=== PATIENT | male | born 1955 | race Caucasian/White ===

== ENCOUNTER → 2016-10-02 | Outpatient (CLI) | payer BC ==
[~2016-10-02] MED LIST: ASPI-407 PO; CHOL20009 PO; FLUT1SPR5; LORA-154 PO; METO25TA3 PO; NOR10T PO; ROSU20TA14 PO; TAM04C PO; VALS40TA2 PO
== END | disposition home or self-care (01) ==
LOC: Rad HDHVI 13:40
PROVIDERS: ATTEND Internal Medicine Cardiovascular Disease
DX: E78.5 Hyperlipidemia, unspecified (principal); R42 Dizziness and giddiness
CPT/HCPCS: 93306

== ENCOUNTER → 2016-11-11 | Outpatient (CLI) | payer BC ==
[2016-11-11 08:45] VITALS: BP 149/86
[2016-11-11 09:15] VITALS: BP 150/84
[2016-11-11 12:36] LABS: Basophils # (auto) 0.1 uL; Basophils % (auto) 0.8 % (0.0-2.0); Eosinophils # (auto) 0.1 uL; Eosinophils % (auto) 1.9 % (0.0-7.0); Hematocrit 47.5 % (41.0-53.0); Hemoglobin 15.7 g/dL (13.5-17.5); Lymphocytes # (auto) 1.5 uL; Lymphocytes % (auto) 21.3 % (10.0-50.0); Mean Corpuscular Hemoglobin 28.6 pg (28.0-32.0); Mean Corpuscular Hgb Conc. 33.1 g/dL (32.0-36.0); Mean Corpuscular Volume 86.6 fL (80.0-100.0); Mean Platelet Volume 9.2 fL (7.4-10.4); Monocytes # (auto) 0.6 uL; Monocytes % (auto) 8.6 % (0.0-12.0); Neutrophils # (auto) 4.8 uL; Neutrophils % (auto) 67.4 % (37.0-80.0); Platelet Count (auto) 280 10^3/uL (140-450); Red Cell Distribution Width 15.6 % (11.6-16.0); White Blood Cell 7.1 10^3/uL (4.4-10.8)
[2016-11-11 12:46] LABS: INR 1.03 (0.9-1.15); Partial Thromboplastin Time 29.2 sec (22.64-33.71); Prothrombin Time 11.1 sec (9.37-12.3)
[2016-11-11 12:54] LABS: BUN/Creatinine Ratio 20.2; Bilirubin, Direct 0.2 mg/dL (0-0.2); Bilirubin, Total 0.5 mg/dL (0.2-1.0); Calcium 8.7 mg/dL (8.5-10.1); Magnesium 2.6 mg/dL (1.6-2.6); Potassium 4.2 mmol/L (3.5-5.1); Total Protein 7.1 g/dL (6.4-8.2)
== END | disposition home or self-care (01) ==
LOC: Rad HDHVI 08:26
PROVIDERS: ATTEND Internal Medicine Cardiovascular Disease
DX: Z01.812 Encounter for preprocedural laboratory examination (principal); M19.011 Primary osteoarthritis, right shoulder; E83.42 Hypomagnesemia
CPT/HCPCS: 36415; 71020; 80048; 80076; 83735; 85025; 85610; 85730; 93005; G0463

== ENCOUNTER 2016-12-19 22:29 | Emergency (ER) | payer BC ==
[~2016-12-19] VITALS: Ht 190.5 cm; Wt 136.1 kg
[2016-12-19 22:51] LABS: Basophils # (auto) 0 uL; Basophils % (auto) 0.3 % (0.0-2.0); CONDITION Y; Eosinophils # (auto) 0 uL; Eosinophils % (auto) 0.2 % (0.0-7.0); Hematocrit 49.5 % (41.0-53.0); Hemoglobin 16.7 g/dL (13.5-17.5); Lymphocytes % (auto) 8.8 % (10.0-50.0); Mean Corpuscular Hemoglobin 28.3 pg (28.0-32.0); Mean Corpuscular Hgb Conc. 33.7 g/dL (32.0-36.0); Mean Corpuscular Volume 83.8 fL (80.0-100.0); Mean Platelet Volume 8.6 fL (7.4-10.4); Monocytes # (auto) 0.4 uL; Monocytes % (auto) 3.4 % (0.0-12.0); Neutrophils # (auto) 9.7 uL; Neutrophils % (auto) 87.3 % (37.0-80.0); Platelet Count (auto) 285 10^3/uL (140-450); Red Cell Distribution Width 14.2 % (11.6-16.0); White Blood Cell 11.1 10^3/uL (4.4-10.8)
[2016-12-19 23:12] LABS: Anion Gap 13 (5-15); Blood Urea Nitrogen 17 mg/dL (7-18); Calcium 9.1 mg/dL (8.5-10.1); Carbon Dioxide 22 mmol/L (21-32); Chloride 109 mmol/L (98-107); Glucose 134 mg/dL (74-106); Magnesium 2.2 mg/dL (1.6-2.6); Potassium 4.4 mmol/L (3.5-5.1); Sodium 144 mmol/L (136-145)
[2016-12-19 23:13] LABS: Aspartate Aminotransferase 19 U/L (15-37); BUN/Creatinine Ratio 17.3; GFR African American 100 mL/min; GFR Non-African American 83 mL/min
[2016-12-19 23:18] LABS: Alkaline Phosphatase 71 U/L (45-117); Bilirubin, Total 0.4 mg/dL (0.2-1.0); Total Protein 7.9 g/dL (6.4-8.2)
[2016-12-20 00:12] LABS: B-Type Natriuretic Peptide 7.8 pg/mL (0-100)
[2016-12-20] MEDS ORDERED: FURO40TA4 PO (00:16)
[2016-12-20 00:29] LABS: INR 0.98 (0.9-1.15); Prothrombin Time 10.7 sec (9.37-12.3)
[2016-12-20 00:29] LABS: Urine RBC None Seen /hpf (0 - 3)
[2016-12-20 00:49] LABS: Urine Bilirubin Negative (Negative); Urine Blood Negative /uL (Negative); Urine Color Colorless (Yellow); Urine Glucose Normal (Normal); Urine Ketone Negative (Negative); Urine Nitrite Negative (Negative); Urine Urobilinogen Normal (Negative)
[2016-12-20 00:50] LABS: Temperature: 23.7 C (20.0-25.0)
[2016-12-20] MEDS ORDERED: IOHEXOL 350 MG/ML 100ML IJ ONE (01:11)
[2016-12-20] MEDS ORDERED: VALSARTAN 80 MG TAB PO ONE (03:45)
[2016-12-20] MEDS ORDERED: METOPROLOL TARTRATE 25 MG TAB PO ONE (03:45)
[2016-12-20] MEDS ORDERED: FUROSEMIDE 20 MG/2 ML VIAL IV ONE (04:00)
[2016-12-20 05:21] VITALS: BP 127/64
== END 2016-12-20 05:27 | disposition home or self-care (01) ==
LOC: ER 22:29
DX: I11.0 Hypertensive heart disease with heart failure (principal); I50.9 Heart failure, unspecified; J44.9 Chronic obstructive pulmonary disease, unspecified; I48.91 Unspecified atrial fibrillation; E11.9 Type 2 diabetes mellitus without complications; E78.5 Hyperlipidemia, unspecified; I25.2 Old myocardial infarction; Z95.1 Presence of aortocoronary bypass graft; Z95.0 Presence of cardiac pacemaker; Z79.01 Long term (current) use of anticoagulants; Z79.899 Other long term (current) drug therapy
CPT/HCPCS: 36415; 71010; 71275; 80053; 81001; 83735; 83880; 84484; 85025; 85379; 85610; 85730; 93005; 96374; 99285; J1940; Q9967

== ENCOUNTER → 2017-01-20 | Outpatient (CLI) | payer BC ==
[~2017-01-20] MED LIST changes: +FURO40TA4 PO
== END | disposition home or self-care (01) ==
LOC: Rad HDHVI 07:55
PROVIDERS: ATTEND Internal Medicine Cardiovascular Disease
DX: I08.0 Rheumatic disorders of both mitral and aortic valves (principal); I10 Essential (primary) hypertension; E78.5 Hyperlipidemia, unspecified
CPT/HCPCS: 93306

== ENCOUNTER → 2017-02-13 | Outpatient (CLI) | payer BC ==
[~2017-02-13] VITALS: Ht 188 cm; Wt 129.3 kg
== END | disposition home or self-care (01) ==
LOC: Rad HDHVI 09:37
PROVIDERS: ATTEND Internal Medicine Cardiovascular Disease
DX: I11.0 Hypertensive heart disease with heart failure (principal); I50.9 Heart failure, unspecified; I25.2 Old myocardial infarction; I48.91 Unspecified atrial fibrillation; E78.5 Hyperlipidemia, unspecified; Z95.0 Presence of cardiac pacemaker
CPT/HCPCS: 78452; 93017; 96374; A9500

== ENCOUNTER → 2017-04-22 | Outpatient (CLI) | payer BC | END | disposition home or self-care (01) | LOC: Rad HDHVI 10:00 | PROVIDERS: ATTEND Internal Medicine Cardiovascular Disease | DX: I50.9 Heart failure, unspecified (principal) | CPT/HCPCS: 93306 ==

== ENCOUNTER 2017-08-03 21:40 | Inpatient (IN) | payer BC ==
[~2017-08-03] VITALS: Ht 188 cm; Wt 134.1 kg
[2017-08-03 22:53] LABS: Basophils # (auto) 0.1 uL; Basophils % (auto) 0.9 % (0.0-2.0); Eosinophils # (auto) 0.1 uL; Eosinophils % (auto) 1.7 % (0.0-7.0); Hemoglobin 16.1 g/dL (13.5-17.5); Lymphocytes # (auto) 1.6 uL; Lymphocytes % (auto) 19.6 % (10.0-50.0); Mean Corpuscular Hemoglobin 28.8 pg (28.0-32.0); Mean Corpuscular Hgb Conc. 33.5 g/dL (32.0-36.0); Mean Corpuscular Volume 85.8 fL (80.0-100.0); Monocytes # (auto) 0.5 uL; Monocytes % (auto) 6.5 % (0.0-12.0); Neutrophils # (auto) 5.9 uL; Neutrophils % (auto) 71.3 % (37.0-80.0); Nucleated Red Blood Cells % 0.1 %; Platelet Count (auto) 266 10^3/uL (140-450); Red Blood Cells 5.59 10^6/uL (4.5-5.90); Red Cell Distribution Width 14.8 % (11.8-14.3); White Blood Cell 8.2 10^3/uL (4.4-10.8)
[2017-08-03 22:54] LABS: Alanine Aminotransferase 28 U/L (16-61); Albumin 3.9 g/dL (3.4-5.0); Alkaline Phosphatase 68 U/L (45-117); Anion Gap 12 (5-15); Aspartate Aminotransferase 16 U/L (15-37); BUN/Creatinine Ratio 12.8; Bilirubin, Total 0.5 mg/dL (0.2-1.0); Blood Urea Nitrogen 12 mg/dL (7-18); Calcium 8.6 mg/dL (8.5-10.1); Carbon Dioxide 23 mmol/L (21-32); Chloride 107 mmol/L (98-107); GFR African American 105 mL/min; GFR Non-African American 87 mL/min; Glucose 131 mg/dL (74-106); Magnesium 2.7 mg/dL (1.6-2.6); Potassium 3.8 mmol/L (3.5-5.1); Sodium 142 mmol/L (136-145); Total Protein 7.3 g/dL (6.4-8.2)
[2017-08-03 23:31] LABS: Amylase 32 U/L (25-115); Lipase 88 U/L (73-393)
[2017-08-04 00:16] LABS: Urine Bacteria NONE SEEN /hpf (None Seen); Urine Blood Negative /uL (Negative); Urine Specific Gravity 1.007 (1.001-1.035); Urine WBC <1 /hpf (0 - 3)
[2017-08-04 00:31] LABS: INR 0.95 (0.9-1.15); Partial Thromboplastin Time 28.2 sec (22.64-33.71); Prothrombin Time 10.3 sec (9.37-12.3)
[2017-08-04] MEDS ORDERED: IOHEXOL 350 MG/ML 100ML IJ ONE (01:33)
[2017-08-04] MEDS ORDERED: ENOXAPARIN SOD 150 MG/1 ML SYRINGE SC ONE (03:00)
[2017-08-04] MEDS ORDERED: NITROGLYCERIN 0.4 MG SL TAB SL PRN (07:30)
[2017-08-04] MEDS ORDERED: DEXTROSE (50%) 50ML SYRG IV PRN (07:30)
[2017-08-04] MEDS ORDERED: HYDROcodone-ACET 5/325MG TAB PO PRN (07:30)
[2017-08-04] MEDS ORDERED: TEMAZEPAM 15 MG CAP PO PRN (07:30)
[2017-08-04] MEDS ORDERED: ONDANSETRON HCL 4 MG/2 ML VIAL IV PRN (07:30)
[2017-08-04] MEDS ORDERED: MORPHINE SULFATE 4 MG/ML SYR/VIAL IV PRN (07:30)
[2017-08-04] MEDS ORDERED: ACETAMINOPHEN 325 MG TAB PO PRN (07:30)
[2017-08-04 09:00] VITALS: BP 147/79
[2017-08-04] MEDS: FAMOTIDINE 20 MG TAB PO SCH ×2 (10:00→21:48)
[2017-08-04] MEDS: FUROSEMIDE 20 MG TAB PO SCH (10:00)
[2017-08-04] MEDS ORDERED: METOPROLOL TARTRATE 25 MG TAB PO SCH (10:00)
[2017-08-04] MEDS ORDERED: VALSARTAN 80 MG TAB PO SCH (10:00)
[2017-08-04] MEDS ORDERED: ASPirin 81 mg TAB PO SCH (10:00)
[2017-08-04] MEDS: ASPirin 81 mg TAB PO SCH (10:40)
[2017-08-04] MEDS ORDERED: SACU1TAB7 PO (11:58)
[2017-08-04] MEDS: InsuLIN REG 1unit/0.01ml Soln (100units/ml) SC SCH ×3 (12:00→23:15)
[2017-08-04 13:00] VITALS: BP 99/72
[2017-08-04] MEDS ORDERED: ZOLPIDEM TARTRATE 5 MG TAB PO PRN (15:00)
[2017-08-04 15:06] VITALS: BP 147/79
[2017-08-04 17:00] VITALS: BP 92/73
[2017-08-04] MEDS ORDERED: TAMSULOSIN HYDROCHLORIDE 0.4 MG CAP PO SCH (18:00)
[2017-08-04] MEDS: ACCU-CHEK COMFORT CURVE STRIP VI SCH ×3 (18:11→23:15)
[2017-08-04] MEDS: [UNRECOGNIZED DRUG - OTHER] PO SCH (21:47)
[2017-08-04] MEDS: VALSARTAN PO SCH (21:47)
[2017-08-04] MEDS: METOPROLOL TARTRATE 50 MG TAB PO SCH (21:48)
[2017-08-04 22:00] VITALS: BP 130/71
[2017-08-04] MEDS ORDERED: PATIENTS OWN MEDICATION (crestor 20 MG) PO SCH (22:00)
[2017-08-04] MEDS ORDERED: ATORVASTATIN 20 MG TAB PO SCH (22:00)
[2017-08-05 05:45] VITALS: BP 123/70
[2017-08-05 05:48] LABS: Basophils # (auto) 0.1 uL; Basophils % (auto) 0.7 % (0.0-2.0); Eosinophils # (auto) 0.2 uL; Eosinophils % (auto) 1.8 % (0.0-7.0); Hematocrit 47.8 % (41.0-53.0); Hemoglobin 15.9 g/dL (13.5-17.5); Lymphocytes % (auto) 23.7 % (10.0-50.0); Mean Corpuscular Hemoglobin 28.4 pg (28.0-32.0); Mean Corpuscular Hgb Conc. 33.1 g/dL (32.0-36.0); Mean Corpuscular Volume 85.8 fL (80.0-100.0); Monocytes # (auto) 0.6 uL; Monocytes % (auto) 7.1 % (0.0-12.0); Neutrophils # (auto) 5.5 uL; Neutrophils % (auto) 66.7 % (37.0-80.0); Platelet Count (auto) 225 10^3/uL (140-450); Red Blood Cells 5.57 10^6/uL (4.5-5.90); Red Cell Distribution Width 14.5 % (11.8-14.3); White Blood Cell 8.3 10^3/uL (4.4-10.8)
[2017-08-05] MEDS: InsuLIN REG 1unit/0.01ml Soln (100units/ml) SC SCH ×2 (06:00→12:00)
[2017-08-05] MEDS: ACCU-CHEK COMFORT CURVE STRIP VI SCH ×2 (06:14→12:46)
[2017-08-05 06:15] LABS: Albumin 3.5 g/dL (3.4-5.0); BUN/Creatinine Ratio 16.3; Calcium 8.7 mg/dL (8.5-10.1); Potassium 4.1 mmol/L (3.5-5.1); Total Protein 6.7 g/dL (6.4-8.2)
[2017-08-05 09:00] VITALS: BP 133/71
[2017-08-05] MEDS ORDERED: ENOXAPARIN SOD 40 MG/0.4 ML SYRINGE SC SCH (10:00)
[2017-08-05] MEDS: FUROSEMIDE 20 MG TAB PO SCH (10:55)
[2017-08-05] MEDS: ASPirin 81 mg TAB PO SCH (10:55)
[2017-08-05] MEDS: METOPROLOL TARTRATE 50 MG TAB PO SCH (10:56)
[2017-08-05] MEDS: FAMOTIDINE 20 MG TAB PO SCH (10:56)
[2017-08-05] MEDS: VALSARTAN PO SCH (12:31)
[2017-08-05] MEDS: [UNRECOGNIZED DRUG - OTHER] PO SCH (12:31)
[2017-08-05 13:00] VITALS: BP 126/72
[2017-08-05 16:55] VITALS: BP 126/60
== END 2017-08-05 19:11 | disposition home or self-care (01) | DRG 292 ==
LOC: ER 21:40 → TELE 21:41 → TELE-WESTW 08-04 08:49
PROVIDERS: ADMIT Nurse Practitioner; ATTEND Family Medicine
DX: I11.0 Hypertensive heart disease with heart failure (principal); J44.1 Chronic obstructive pulmonary disease with (acute) exacerbation; I42.9 Cardiomyopathy, unspecified; K76.0 Fatty (change of) liver, not elsewhere classified; R07.89 Other chest pain; I50.9 Heart failure, unspecified; I48.91 Unspecified atrial fibrillation; F41.9 Anxiety disorder, unspecified; E78.5 Hyperlipidemia, unspecified; E11.9 Type 2 diabetes mellitus without complications; E78.00 Pure hypercholesterolemia, unspecified; Z82.49 Family history of ischemic heart disease and other diseases of the circulatory system; Z95.1 Presence of aortocoronary bypass graft; I25.2 Old myocardial infarction; Z82.5 Family history of asthma and other chronic lower respiratory diseases; Z83.3 Family history of diabetes mellitus; Z86.73 Personal history of transient ischemic attack (TIA), and cerebral infarction without residual deficits; Z95.0 Presence of cardiac pacemaker
CPT/HCPCS: 36415; 71045; 71275; 76705; 80053; 81001; 82150; 82962; 83690; 83735; 83880; 84484; 85025; 85379; 85610; 85730; 87081; 93005; 96372

== ENCOUNTER → 2017-08-27 | Outpatient (CLI) | payer BC ==
[~2017-08-27] MED LIST changes: +SACU1TAB7 PO; -VALS40TA2 PO
== END | disposition home or self-care (01) ==
LOC: Rad HDHVI 13:47
PROVIDERS: ATTEND Internal Medicine Cardiovascular Disease
DX: I51.7 Cardiomegaly (principal)
CPT/HCPCS: 93306

== ENCOUNTER → 2018-02-04 | Outpatient (CLI) | payer BC ==
[~2018-02-04] VITALS: Ht 188 cm; Wt 136.1 kg
[~2018-02-04] MED LIST changes: -METO25TA3 PO; +METO25TA4 PO
[2018-02-04 12:27] LABS: Basophils # (auto) 0.1 uL; Basophils % (auto) 1.3 % (0.0-2.0); Eosinophils # (auto) 0.1 uL; Eosinophils % (auto) 1.7 % (0.0-7.0); Hematocrit 49.4 % (41.0-53.0); Hemoglobin 16.7 g/dL (13.5-17.5); Lymphocytes # (auto) 1.5 uL; Lymphocytes % (auto) 22.7 % (10.0-50.0); Mean Corpuscular Hemoglobin 28.6 pg (28.0-32.0); Mean Corpuscular Hgb Conc. 33.8 g/dL (32.0-36.0); Mean Corpuscular Volume 84.7 fL (80.0-100.0); Monocytes # (auto) 0.7 uL; Monocytes % (auto) 10.1 % (0.0-12.0); Neutrophils # (auto) 4.3 uL; Neutrophils % (auto) 64.2 % (37.0-80.0); Nucleated Red Blood Cells % 0.3 %; Platelet Count (auto) 251 10^3/uL (140-450); Red Blood Cells 5.84 10^6/uL (4.5-5.90); White Blood Cell 6.7 10^3/uL (4.4-10.8)
[2018-02-04 12:28] LABS: Urine Blood Negative /uL (Negative); Urine Specific Gravity 1.022 (1.001-1.035)
[2018-02-04 12:48] LABS: Albumin 3.9 g/dL (3.4-5.0); BUN/Creatinine Ratio 11.7; Bilirubin, Total 0.8 mg/dL (0.2-1.0); Calcium 9.1 mg/dL (8.5-10.1); Potassium 3.8 mmol/L (3.5-5.1); Total Protein 7.2 g/dL (6.4-8.2)
[2018-02-04 13:30] LABS: Free T4 (Free Thyroxine) 1.04 ng/dL (0.89-1.76)
[2018-02-04 13:31] LABS: Prostate Specific Antigen 1.51 ng/mL (0.0-4.0)
== END | disposition home or self-care (01) ==
LOC: Rad HDHVI 08:07
PROVIDERS: ATTEND Internal Medicine
DX: Z00.01 Encounter for general adult medical examination with abnormal findings (principal); I11.0 Hypertensive heart disease with heart failure; I50.9 Heart failure, unspecified; E11.9 Type 2 diabetes mellitus without complications; E03.9 Hypothyroidism, unspecified; E55.9 Vitamin D deficiency, unspecified; E29.1 Testicular hypofunction; C61 Malignant neoplasm of prostate; D51.9 Vitamin B12 deficiency anemia, unspecified; N39.0 Urinary tract infection, site not specified; R63.8 Other symptoms and signs concerning food and fluid intake; I42.9 Cardiomyopathy, unspecified; G47.00 Insomnia, unspecified; R55 Syncope and collapse
CPT/HCPCS: 36415; 78452; 80053; 80061; 81003; 82306; 82607; 83036; 84153; 84403; 84439; 84443; 85025; 87086; 93017; 96374; A9500

== ENCOUNTER → 2018-09-04 | Outpatient (CLI) | payer MEDICARE ==
[~2018-09-04] MED LIST changes: +POTASSIUM CHL 20 Meq TABLET PO ONE
[2018-09-04 13:00] VITALS: BP 110/60
--- NOTE | 2018-09-04 13:00 | NUR ---
MEDICATION RETRIEVED PER DR REQUEST FOR NOW ADMINISTRATION MEDICATION ADMINISTRATION POTASSIUM 60 MEQ PO AT 1300
[2018-09-04 16:00] LABS: Eosinophils # (auto) 0.1 uL; Hemoglobin 17.2 g/dL (13.5-17.5); Lymphocytes # (auto) 1.6 uL; Nucleated Red Blood Cells % 0.2 %
[2018-09-04 16:02] LABS: Basophils # (auto) 0.1 uL; Basophils % (auto) 0.9 % (0.0-2.0); Bilirubin, Direct 0.2 mg/dL (0-0.2); Calcium 8.9 mg/dL (8.5-10.1); Eosinophils % (auto) 1.3 % (0.0-7.0); Hematocrit 52.5 % (41.0-53.0); Lymphocytes % (auto) 21.1 % (10.0-50.0); Mean Corpuscular Hemoglobin 28.1 pg (28.0-32.0); Mean Corpuscular Hgb Conc. 32.8 g/dL (32.0-36.0); Mean Corpuscular Volume 85.7 fL (80.0-100.0); Monocytes # (auto) 0.6 uL; Monocytes % (auto) 7.5 % (0.0-12.0); Neutrophils # (auto) 5.2 uL; Neutrophils % (auto) 69.2 % (37.0-80.0); Platelet Count (auto) 196 10^3/uL (140-450); Potassium 4.2 mmol/L (3.5-5.1); Red Blood Cells 6.12 10^6/uL (4.5-5.90); Red Cell Distribution Width 15.2 % (11.8-14.3); White Blood Cell 7.5 10^3/uL (4.4-10.8)
[2018-09-04 16:05] LABS: Bilirubin, Total 0.7 mg/dL (0.2-1.0); Total Protein 7.7 g/dL (6.4-8.2)
== END | disposition home or self-care (01) ==
LOC: CHF HDHVI 13:36
PROVIDERS: ATTEND Internal Medicine Cardiovascular Disease
DX: E87.6 Hypokalemia (principal); C61 Malignant neoplasm of prostate; E03.9 Hypothyroidism, unspecified; E55.9 Vitamin D deficiency, unspecified; E11.9 Type 2 diabetes mellitus without complications; N39.0 Urinary tract infection, site not specified
CPT/HCPCS: 36415; 80048; 80061; 80076; 82306; 83036; 84153; 84403; 84443; 85025; G0463

== ENCOUNTER → 2018-09-10 | Outpatient (CLI) | payer MEDICARE ==
[~2018-09-10] MED LIST changes: -POTASSIUM CHL 20 Meq TABLET PO ONE
== END | disposition home or self-care (01) ==
LOC: Rad HDHVI 14:57
PROVIDERS: ATTEND Internal Medicine Cardiovascular Disease
DX: I25.10 Atherosclerotic heart disease of native coronary artery without angina pectoris (principal); I11.0 Hypertensive heart disease with heart failure; I50.9 Heart failure, unspecified; I42.9 Cardiomyopathy, unspecified
CPT/HCPCS: 93306

== ENCOUNTER → 2019-10-13 | Outpatient (CLI) | payer MEDICARE ==
[~2019-10-13] VITALS: Ht 188 cm; Wt 133.8 kg
[~2019-10-13] MED LIST changes: +METO25TA36 PO; -METO25TA4 PO
[2019-10-13 12:01] LABS: Basophils # (auto) 0.1 10 ^3/uL (0-0.2); Basophils % (auto) 0.9 % (0.0-2.0); Eosinophils # (auto) 0.1 10 ^3/uL (0-0.8); Eosinophils % (auto) 1.1 % (0.0-7.0); Hematocrit 51.2 % (41.0-53.0); Hemoglobin 17.1 g/dL (13.5-17.5); Lymphocytes # (auto) 1.7 10 ^3/uL (0.4-5.4); Lymphocytes % (auto) 23.5 % (10.0-50.0); Mean Corpuscular Hemoglobin 28.9 pg (28.0-32.0); Mean Corpuscular Hgb Conc. 33.4 g/dL (32.0-36.0); Mean Corpuscular Volume 86.3 fL (80.0-100.0); Monocytes # (auto) 0.6 10 ^3/uL (0-1.3); Monocytes % (auto) 7.9 % (0.0-12.0); Neutrophils # (auto) 4.7 10 ^3/uL (1.6-8.6); Neutrophils % (auto) 66.6 % (37.0-80.0); Nucleated Red Blood Cells % 0.1 %; Platelet Count (auto) 239 10^3/uL (140-450); Red Blood Cells 5.93 10^6/uL (4.5-5.90); Red Cell Distribution Width 15.7 % (11.8-14.3); White Blood Cell 7.1 10^3/uL (4.4-10.8)
[2019-10-13 12:02] LABS: Urine Bacteria NONE SEEN /hpf (None Seen); Urine Blood Negative /uL (Negative); Urine Mucus FEW (None Seen); Urine Specific Gravity 1.025 (1.001-1.035); Urine WBC 13 /hpf (0 - 3)
[2019-10-13 12:10] LABS: Albumin 3.8 g/dL (3.4-5.0); Calcium 9.2 mg/dL (8.5-10.1)
[2019-10-13 12:15] LABS: Bilirubin, Total 0.6 mg/dL (0.2-1.0); Total Protein 7.5 g/dL (6.4-8.2)
[2019-10-13 12:16] LABS: INR 1.03 (0.9-1.15); Partial Thromboplastin Time 30.8 sec (23.64-32.05)
[2019-10-13 12:19] LABS: Free T4 (Free Thyroxine) 1.1 ng/dL (0.89-1.76)
== END | disposition home or self-care (01) ==
LOC: Rad HDHVI 07:55
PROVIDERS: ATTEND Internal Medicine Cardiovascular Disease
DX: C61 Malignant neoplasm of prostate (principal); Z00.00 Encounter for general adult medical examination without abnormal findings; M17.12 Unilateral primary osteoarthritis, left knee; E03.9 Hypothyroidism, unspecified; K90.9 Intestinal malabsorption, unspecified; E29.1 Testicular hypofunction; N39.0 Urinary tract infection, site not specified; D51.9 Vitamin B12 deficiency anemia, unspecified; Z79.899 Other long term (current) drug therapy
CPT/HCPCS: 36415; 71046; 78452; 80053; 80061; 81001; 82306; 82607; 82947; 83036; 84403; 84439; 84443; 85025; 85610; 85730; 87081; 93017; 93306; 96374; A9500; 87086

== ENCOUNTER → 2019-11-16 | Outpatient (CLI) | payer BC, MEDICARE ==
[2019-11-16 08:10] VITALS: BP 119/65
--- NOTE | 2019-11-16 08:10 | NUR ---
CHF PT ARRIVED TO THE CHF CLINIC FOR PRE OP EKG AND LABS FOR OUTSIDE SURGERY WITH MD LAWRENCE @ [facility]. A/O X4, AMBULATORY.
[2019-11-16 08:32] VITALS: BP 113/70
--- NOTE | 2019-11-16 08:32 | NUR ---
Pre-Op Discharge Summary: Pre-op orders received and carried out per MD of EKG, LABS. Patient given a copy of EKG. EKG results FAXED TO by WITH PROVIDED FAX # [phone]. NOTE EKG ADMIN BY LAUREN RIDDLE
[2019-11-16 11:52] LABS: Basophils # (auto) 0.1 10 ^3/uL (0-0.2); Eosinophils # (auto) 0.1 10 ^3/uL (0-0.8); Hemoglobin 17.5 g/dL (13.5-17.5); Monocytes # (auto) 0.6 10 ^3/uL (0-1.3); Neutrophils # (auto) 5.3 10 ^3/uL (1.6-8.6); Platelet Count (auto) 250 10^3/uL (140-450); Red Cell Distribution Width 15.1 % (11.8-14.3)
[2019-11-16 11:56] LABS: Basophils % (auto) 0.9 % (0.0-2.0); Eosinophils % (auto) 1.4 % (0.0-7.0); Hematocrit 52.8 % (41.0-53.0); Lymphocytes # (auto) 1.9 10 ^3/uL (0.4-5.4); Lymphocytes % (auto) 23.6 % (10.0-50.0); Mean Corpuscular Hemoglobin 28.5 pg (28.0-32.0); Mean Corpuscular Hgb Conc. 33.1 g/dL (32.0-36.0); Mean Corpuscular Volume 86.1 fL (80.0-100.0); Monocytes % (auto) 7.8 % (0.0-12.0); Neutrophils % (auto) 66.3 % (37.0-80.0); Nucleated Red Blood Cells % 0.1 %; Red Blood Cells 6.13 10^6/uL (4.5-5.90); Urine Blood Negative /uL (Negative); Urine Specific Gravity 1.023 (1.001-1.035)
[2019-11-16 12:05] LABS: INR 1.04 (0.9-1.15)
[2019-11-16 12:06] LABS: Albumin 3.7 g/dL (3.4-5.0); Calcium 8.9 mg/dL (8.5-10.1); Potassium 4.4 mmol/L (3.5-5.1)
[2019-11-16 12:09] LABS: Bilirubin, Total 0.6 mg/dL (0.2-1.0); Total Protein 7.4 g/dL (6.4-8.2)
== END | disposition home or self-care (01) ==
LOC: CHF HDHVI 08:04
PROVIDERS: ATTEND Internal Medicine Cardiovascular Disease
DX: Z01.812 Encounter for preprocedural laboratory examination (principal); C61 Malignant neoplasm of prostate; M17.12 Unilateral primary osteoarthritis, left knee; I25.10 Atherosclerotic heart disease of native coronary artery without angina pectoris; I10 Essential (primary) hypertension; M85.80 Other specified disorders of bone density and structure, unspecified site; Z96.659 Presence of unspecified artificial knee joint
CPT/HCPCS: 36415; 80053; 81003; 82947; 84153; 85025; 85610; 85730; 87081; 93005; G0463

== ENCOUNTER 2020-05-06 18:24 | Inpatient (IN) | payer BC, MEDICARE ==
[~2020-05-06] VITALS: Ht 188 cm; Wt 127.1 kg
[2020-05-06] MEDS ORDERED: SODIUM CHLORIDE 0.9% 1,000 ML IV ONE (19:15)
[2020-05-06 19:28] LABS: Basophils # (auto) 0 10 ^3/uL (0-0.2); Basophils % (auto) 0.6 % (0.0-2.0); Eosinophils # (auto) 0.1 10 ^3/uL (0-0.8); Eosinophils % (auto) 1.3 % (0.0-7.0); Hematocrit 47.4 % (41.0-53.0); Hemoglobin 15.4 g/dL (13.5-17.5); Lymphocytes % (auto) 15.9 % (10.0-50.0); Mean Corpuscular Hemoglobin 27.1 pg (28.0-32.0); Mean Corpuscular Hgb Conc. 32.5 g/dL (32.0-36.0); Mean Corpuscular Volume 83.3 fL (80.0-100.0); Monocytes # (auto) 0.5 10 ^3/uL (0-1.3); Neutrophils # (auto) 4.9 10 ^3/uL (1.6-8.6); Neutrophils % (auto) 75.2 % (37.0-80.0); Nucleated Red Blood Cells % 0.1 %; Platelet Count (auto) 244 10^3/uL (140-450); Red Blood Cells 5.69 10^6/uL (4.5-5.90); Red Cell Distribution Width 15.1 % (11.8-14.3); White Blood Cell 6.5 10^3/uL (4.4-10.8)
[2020-05-06 19:52] LABS: Alanine Aminotransferase 21 U/L (16-61); Albumin 3.6 g/dL (3.4-5.0); Anion Gap 5 (5-15); Aspartate Aminotransferase 12 U/L (15-37); Blood Alcohol < 3.0 mg/dL (0-5); Blood Urea Nitrogen 12 mg/dL (7-18); Calcium 8.8 mg/dL (8.5-10.1); Carbon Dioxide 24 mmol/L (21-32); Chloride 110 mmol/L (98-107); GFR African American 107 mL/min; GFR Non-African American 88 mL/min; Glucose 124 mg/dL (74-106); Potassium 3.8 mmol/L (3.5-5.1); Sodium 139 mmol/L (136-145)
[2020-05-06 19:55] LABS: Alkaline Phosphatase 83 U/L (45-117); Bilirubin, Total 0.4 mg/dL (0.2-1.0); Total Protein 7.2 g/dL (6.4-8.2)
[2020-05-06 20:22] LABS: Urine Bacteria NONE SEEN /hpf (None Seen); Urine Blood Negative /uL (Negative); Urine Mucus FEW (None Seen); Urine Specific Gravity 1.011 (1.001-1.035); Urine WBC 1 /hpf (0 - 3)
[2020-05-06] MEDS ORDERED: DexAMETHasone SOD PHOS 10MG/1ML VIAL INJ IV ONE (21:00)
[2020-05-06] MEDS ORDERED: IOHEXOL 350 MG/ML 100ML IJ ONE (21:17)
[2020-05-06] MEDS ORDERED: DOXYCYCLINE 100MG/250ML 250 ML IV ONE (22:15)
[2020-05-06] MEDS ORDERED: ONDANSETRON HCL 4 MG/2 ML VIAL IV PRN (23:15)
[2020-05-06] MEDS ORDERED: DOCUSATE SOD 100 MG CAP PO PRN (23:15)
[2020-05-06] MEDS ORDERED: HYDROcodone-ACET 5/325MG TAB PO PRN (23:15)
[2020-05-06] MEDS ORDERED: MORPHINE SULFATE 4 MG/ML SYR/VIAL IV PRN (23:15)
[2020-05-06] MEDS ORDERED: ACETAMINOPHEN 500 MG TAB PO PRN (23:15)
[2020-05-06] MEDS ORDERED: MORPHINE SULF INJ 2 MG/ML SYRINGE 1ML IV PRN (23:15)
[2020-05-06] MEDS ORDERED: NITROGLYCERIN 0.4 MG SL TAB SL PRN (23:15)
[2020-05-07] VITALS (7 sets, daily range): BP systolic 116–149; BP diastolic 55–81
[2020-05-07] MEDS ORDERED: DEXTROSE (50%) 50ML SYRG IV PRN
--- NOTE | 2020-05-07 00:20 | NUR ---
Telemetry admit from ER LISAROCIO admitted to Telemetry unit. No SBAR received from ED. Patient oriented to MELISSA TORIBIO, RN primary RN, MST unit, room 240, bed B, and unit policies regarding patient care and visiting hours. Patient now on continuous telemetry monitoring, tele box #5 and telemetry reading on arrival to unit is sinus rhythm. Patient weighed by bed scale and encouraged to call if they need something. All questions and concerns addressed, patient verbalized understanding. PATIENT ON ROOM AIR WITH EVEN AND UNLABORED RESPIRATIONS, NO S/S OF DISTRESS SOB OR PAIN. PATIENT ABLE TO AMBULATE INDEPENDENTLY, BED IN LOWEST LOCKED POSITION, SIDE RAILS UP X2, AND CALL LIGHT WITHIN REACH.
[2020-05-07] MEDS ORDERED: METO-169 PO (02:33)
--- NOTE | 2020-05-07 03:36 | NUR ---
PULMONARY CONSULT WAS ORDERED FOR DR. MOHAN BUT SHE IS NOT CONSULTING TILL FRIDAY. DR. Kelley HICKEY WAS CONSULTING FOR PATIENT INSTEAD.
[2020-05-07 05:07] LABS: Basophils # (auto) 0 10 ^3/uL (0-0.2); Basophils % (auto) 0.4 % (0.0-2.0); Eosinophils # (auto) 0 10 ^3/uL (0-0.8); Hemoglobin 15.8 g/dL (13.5-17.5); Lymphocytes # (auto) 0.7 10 ^3/uL (0.4-5.4); Lymphocytes % (auto) 9.4 % (10.0-50.0); Mean Corpuscular Hemoglobin 27.4 pg (28.0-32.0); Mean Corpuscular Volume 82.9 fL (80.0-100.0); Monocytes # (auto) 0.2 10 ^3/uL (0-1.3); Monocytes % (auto) 3.1 % (0.0-12.0); Neutrophils # (auto) 6.4 10 ^3/uL (1.6-8.6); Neutrophils % (auto) 87.1 % (37.0-80.0); Platelet Count (auto) 242 10^3/uL (140-450); Red Blood Cells 5.79 10^6/uL (4.5-5.90); Red Cell Distribution Width 15.4 % (11.8-14.3); White Blood Cell 7.3 10^3/uL (4.4-10.8)
[2020-05-07 05:23] LABS: Albumin 3.6 g/dL (3.4-5.0); Calcium 9.2 mg/dL (8.5-10.1); Magnesium 2.5 mg/dL (1.6-2.6)
[2020-05-07 05:26] LABS: BUN/Creatinine Ratio 15.3; Bilirubin, Total 0.4 mg/dL (0.2-1.0); Total Protein 7.1 g/dL (6.4-8.2)
[2020-05-07] MEDS: ALBUTEROL SULF HFA 90MCG INH 200DOSE IN SCH ×3 (06:00→23:37)
[2020-05-07] MEDS: ACCU-CHEK COMFORT CURVE STRIP VI SCH ×4 (06:49→22:15)
[2020-05-07] MEDS: InsuLIN REG 1unit/0.01ml Soln (100units/ml) SC SCH ×4 (06:49→22:00)
[2020-05-07] MEDS: BUDESONIDE (INHALATION) 180 MCG IH IN SCH ×2 (07:20→23:37)
--- NOTE | 2020-05-07 07:20 | NUR ---
Opening shift note Assumed care patient resting in bed AOx4, denies any pain at this time. No s/s of distress noted patient on Room air. Update on POC provided and all questions regarding POC answered at this time.
[2020-05-07] MEDS ORDERED: PANTOPRAZOLE 40 MG/10 ML VIAL INJ IV SCH (10:00)
[2020-05-07] MEDS: ENOXAPARIN SOD 40 MG/0.4 ML SYRINGE SC SCH (10:49)
[2020-05-07] MEDS: MULTIPLE VITAMIN TAB PO SCH (10:50)
[2020-05-07] MEDS: DexAMETHasone SOD PHOS 10MG/1ML VIAL INJ IV SCH (10:50)
[2020-05-07] MEDS: DOXYCYCLINE 100MG/250ML 250 ML IV SCH ×2 (10:50→21:43)
[2020-05-07] MEDS: ASCORBIC ACID 1,000 MG TAB PO SCH (10:51)
[2020-05-07] MEDS: CHOLECALCIFEROL (VITD3) 2,000 UNIT CAP PO SCH (10:51)
[2020-05-07] MEDS: ZINC SULFATE 220mg CAP or TAB PO SCH (10:51)
--- NOTE | 2020-05-07 13:00 | NUR ---
paged Dr. Mcneill paged regarding patient requesting home medications to be added to [facility] as he has not received his blood pressure medication. New orders received at this time to resume home medications and give first dose at this time. Check EM[facility] for additional information regarding new medications.
[2020-05-07] MEDS ORDERED: ASPirin 325 MG TAB PO ONE (13:15)
[2020-05-07] MEDS ORDERED: METOPROLOL TARTRATE 50 MG TAB PO ONE (13:15)
[2020-05-07] MEDS ORDERED: FUROSEMIDE 40 MG/4 ML VIAL IV ONE (15:15)
[2020-05-07] MEDS: TAMSULOSIN HYDROCHLORIDE 0.4 MG CAP PO SCH (18:30)
--- NOTE | 2020-05-07 18:30 | NUR ---
Consents signed. Consents for Covid Convalescent Plasma signed at this time after risks and benefits explained to patient by Dr. Mcneill and this RN.
[2020-05-07] MEDS: METOPROLOL TARTRATE 50 MG TAB PO SCH (21:43)
[2020-05-08] VITALS (9 sets, daily range): BP systolic 100–146; BP diastolic 56–89
--- NOTE | 2020-05-08 02:42 | NUR ---
Convalescent Plasma Patient received convalescent plasma. No reactions noted. Lungs are clear throughout. No sign/symptoms of distress noted or verbalized at this time. Vital signs done per protocol see transfusion spreadsheet.
[2020-05-08 05:36] LABS: Basophils # (auto) 0.1 10 ^3/uL (0-0.2); Basophils % (auto) 0.4 % (0.0-2.0); Eosinophils # (auto) 0 10 ^3/uL (0-0.8); Hematocrit 44.8 % (41.0-53.0); Hemoglobin 14.6 g/dL (13.5-17.5); Lymphocytes # (auto) 1.2 10 ^3/uL (0.4-5.4); Lymphocytes % (auto) 8.2 % (10.0-50.0); Mean Corpuscular Hemoglobin 27.2 pg (28.0-32.0); Mean Corpuscular Hgb Conc. 32.6 g/dL (32.0-36.0); Mean Corpuscular Volume 83.4 fL (80.0-100.0); Monocytes # (auto) 1.2 10 ^3/uL (0-1.3); Monocytes % (auto) 7.8 % (0.0-12.0); Neutrophils # (auto) 12.5 10 ^3/uL (1.6-8.6); Neutrophils % (auto) 83.6 % (37.0-80.0); Nucleated Red Blood Cells % 0.1 %; Platelet Count (auto) 266 10^3/uL (140-450); Red Blood Cells 5.37 10^6/uL (4.5-5.90); Red Cell Distribution Width 15.5 % (11.8-14.3); White Blood Cell 14.9 10^3/uL (4.4-10.8)
[2020-05-08 05:55] LABS: Calcium 9.2 mg/dL (8.5-10.1)
[2020-05-08] MEDS: InsuLIN REG 1unit/0.01ml Soln (100units/ml) SC SCH ×4 (06:00→22:00)
[2020-05-08] MEDS: ACCU-CHEK COMFORT CURVE STRIP VI SCH ×4 (06:00→22:07)
[2020-05-08] MEDS: ALBUTEROL SULF HFA 90MCG INH 200DOSE IN SCH ×3 (07:18→21:46)
[2020-05-08] MEDS: BUDESONIDE (INHALATION) 180 MCG IH IN SCH ×2 (07:18→21:47)
[2020-05-08] MEDS: FUROSEMIDE 40 MG/4 ML VIAL IV SCH (09:46)
[2020-05-08] MEDS: DexAMETHasone SOD PHOS 10MG/1ML VIAL INJ IV SCH (09:46)
[2020-05-08] MEDS: DOXYCYCLINE 100MG/250ML 250 ML IV SCH ×2 (09:46→21:48)
[2020-05-08] MEDS: ASPirin 325 MG TAB PO SCH (09:47)
[2020-05-08] MEDS: ENTRESTO PO SCH ×2 (09:47→21:48)
[2020-05-08] MEDS: ZINC SULFATE 220mg CAP or TAB PO SCH (09:48)
[2020-05-08] MEDS: ASCORBIC ACID 1,000 MG TAB PO SCH (09:49)
[2020-05-08] MEDS: METOPROLOL TARTRATE 50 MG TAB PO SCH ×2 (09:49→21:50)
[2020-05-08] MEDS: CHOLECALCIFEROL (VITD3) 2,000 UNIT CAP PO SCH (09:49)
[2020-05-08] MEDS: PANTOPRAZOLE 40 MG TAB PO SCH (09:49)
[2020-05-08] MEDS: MULTIPLE VITAMIN TAB PO SCH (09:49)
[2020-05-08] MEDS: ENOXAPARIN SOD 40 MG/0.4 ML SYRINGE SC SCH (09:50)
[2020-05-08] MEDS ORDERED: HYDROcodone-ACET 10/325MG TAB PO PRN (10:15)
[2020-05-08] MEDS: TAMSULOSIN HYDROCHLORIDE 0.4 MG CAP PO SCH (18:20)
--- NOTE | 2020-05-08 19:14 | NUR ---
Opening Shift Note Assumed care of patient, awake, alert and oriented x4, on room air with even and unlabored respirations, no S/S of distress/SOB or pain. Patient able to ambulate independently, bed in lowest locked position, side rails up x2, and call light within reach. Instructed on POC and to call for assist PRN, will continue to monitor for changes Q1hr and PRN.
--- NOTE | 2020-05-08 21:40 | NUR ---
IV removal IV DC'd with sterile technique, catheter fully intact. Pressure dressing applied to site. Patient tolerated procedure well.
--- NOTE | 2020-05-08 21:45 | NUR ---
IV insertion IV access obtained, via clean sterile technique by inserting a 22 gauge catheter at the left hand after 1 attempt. IV secured properly. No trauma to site. Patient tolerated procedure well.
[2020-05-08] MEDS ORDERED: ROSUVASTATIN CALCIUM 20 MG PO SCH (22:00)
[2020-05-09 05:00] VITALS: BP 121/61
[2020-05-09] MEDS: BUDESONIDE (INHALATION) 180 MCG IH IN SCH (06:44)
[2020-05-09] MEDS: ALBUTEROL SULF HFA 90MCG INH 200DOSE IN SCH ×2 (06:44→14:30)
[2020-05-09] MEDS: InsuLIN REG 1unit/0.01ml Soln (100units/ml) SC SCH ×2 (07:00→11:30)
[2020-05-09] MEDS: ACCU-CHEK COMFORT CURVE STRIP VI SCH ×2 (07:01→11:50)
[2020-05-09 09:00] VITALS: BP 113/66
[2020-05-09] MEDS: DexAMETHasone SOD PHOS 10MG/1ML VIAL INJ IV SCH (09:01)
[2020-05-09] MEDS: DOXYCYCLINE 100MG/250ML 250 ML IV SCH (09:01)
[2020-05-09] MEDS: ASPirin 325 MG TAB PO SCH (09:01)
[2020-05-09] MEDS: FUROSEMIDE 40 MG/4 ML VIAL IV SCH (09:01)
[2020-05-09] MEDS: ENTRESTO PO SCH (09:02)
[2020-05-09] MEDS: PANTOPRAZOLE 40 MG TAB PO SCH (09:03)
[2020-05-09] MEDS: MULTIPLE VITAMIN TAB PO SCH (09:03)
[2020-05-09] MEDS: ZINC SULFATE 220mg CAP or TAB PO SCH (09:03)
[2020-05-09] MEDS: METOPROLOL TARTRATE 50 MG TAB PO SCH (09:03)
[2020-05-09] MEDS: ENOXAPARIN SOD 40 MG/0.4 ML SYRINGE SC SCH (09:04)
[2020-05-09] MEDS: ASCORBIC ACID 1,000 MG TAB PO SCH (09:04)
[2020-05-09] MEDS: CHOLECALCIFEROL (VITD3) 2,000 UNIT CAP PO SCH (09:04)
[2020-05-09 13:00] VITALS: BP 127/63
--- NOTE | 2020-05-09 14:16 | NUR ---
PAGED MD Bogdan PEÑALOZA RE: PATIENT REQUEST TO DISCHARGE. NEW ORDERS RECEIVED
[2020-05-09 14:28] VITALS: BP 123/85
--- NOTE | 2020-05-09 16:10 | NUR ---
Discharge instructions given as ordered. Encourage to follow up with PMD as instructed. All questions and concerns addressed. Patient verbalized understanding. Medication reconciliation form completed and copy given to patient. Home medications held in Pharmacy returned to patient, . IV removed with catheter intact, pressure dressing applied, f Telemetry unit returned to ICU. Patient taken to vehicle via wheelchair with all personal belongings, accompanied by staff and family member. No distress noted at time of departure.
== END 2020-05-09 16:10 | disposition home health service (06) | DRG 177 ==
LOC: ER 18:24 → TELE 18:25 → TELE-E-ADS 23:41 → TELE-EAST 05-07 00:15
PROVIDERS: ADMIT Nurse Practitioner Family; ATTEND Internal Medicine Cardiovascular Disease
PROC: XW13325 Transfusion of Convalescent Plasma (Nonautologous) into Peripheral Vein, Percutaneous Approach, New Technology Group 5 (ICD-10-PCS; principal; 2020-05-08)
DX: U07.1 COVID-19 (principal); J12.89 Other viral pneumonia; I50.21 Acute systolic (congestive) heart failure; J96.90 Respiratory failure, unspecified, unspecified whether with hypoxia or hypercapnia; J98.11 Atelectasis; I42.9 Cardiomyopathy, unspecified; D68.59 Other primary thrombophilia; J44.0 Chronic obstructive pulmonary disease with (acute) lower respiratory infection; E66.01 Morbid (severe) obesity due to excess calories; E11.9 Type 2 diabetes mellitus without complications; I48.91 Unspecified atrial fibrillation; E78.5 Hyperlipidemia, unspecified; F32.9 Major depressive disorder, single episode, unspecified; I11.0 Hypertensive heart disease with heart failure; I25.10 Atherosclerotic heart disease of native coronary artery without angina pectoris; I25.2 Old myocardial infarction; Z79.82 Long term (current) use of aspirin; Z79.899 Other long term (current) drug therapy; Z83.3 Family history of diabetes mellitus; Z82.49 Family history of ischemic heart disease and other diseases of the circulatory system; Z82.5 Family history of asthma and other chronic lower respiratory diseases; Z86.73 Personal history of transient ischemic attack (TIA), and cerebral infarction without residual deficits; Z95.0 Presence of cardiac pacemaker; Z95.1 Presence of aortocoronary bypass graft; Z68.36 Body mass index [BMI] 36.0-36.9, adult
CPT/HCPCS: 36415; 71045; 71275; 80048; 80053; 80320; 81001; 82962; 83036; 83735; 83880; 84484; 85025; 85379; 86850; 86900; 86901; 87070; 87426; 87804; 87880; 94640; C9113; G0378; J1100; J3490

== ENCOUNTER → 2020-06-01 | Outpatient (CLI) | payer BC, MEDICARE ==
[~2020-06-01] MED LIST changes: +METO-169 PO; -METO25TA36 PO
[2020-06-01 11:58] LABS: Basophils # (auto) 0.1 10 ^3/uL (0-0.2); Eosinophils # (auto) 0.2 10 ^3/uL (0-0.8); Hematocrit 47.5 % (41.0-53.0); Hemoglobin 15.6 g/dL (13.5-17.5); Lymphocytes # (auto) 1.8 10 ^3/uL (0.4-5.4); Mean Corpuscular Hemoglobin 27.9 pg (28.0-32.0); Mean Corpuscular Hgb Conc. 32.9 g/dL (32.0-36.0); Mean Corpuscular Volume 84.8 fL (80.0-100.0); Monocytes # (auto) 0.6 10 ^3/uL (0-1.3); Monocytes % (auto) 9.2 % (0.0-12.0); Neutrophils % (auto) 59.8 % (37.0-80.0); Nucleated Red Blood Cells % 0.1 %; Platelet Count (auto) 203 10^3/uL (140-450); Red Blood Cells 5.61 10^6/uL (4.5-5.90); Red Cell Distribution Width 15.6 % (11.8-14.3); White Blood Cell 6.6 10^3/uL (4.4-10.8)
[2020-06-01 12:18] LABS: Calcium 9.7 mg/dL (8.5-10.1); Potassium 4.2 mmol/L (3.5-5.1)
[2020-06-01 12:19] LABS: BUN/Creatinine Ratio 13.3
== END | disposition home or self-care (01) ==
LOC: LAB 09:24
PROVIDERS: ATTEND Internal Medicine Cardiovascular Disease
DX: E11.9 Type 2 diabetes mellitus without complications (principal); I10 Essential (primary) hypertension; D64.9 Anemia, unspecified
CPT/HCPCS: 36415; 80048; 83036; 85025

== ENCOUNTER → 2020-10-25 | Outpatient (CLI) | payer MEDICARE, BC ==
[~2020-10-25] MED LIST changes: -LORA-154 PO; +LORA-483 PO; -METO-169 PO; +METO-289 PO
== END | disposition home or self-care (01) ==
LOC: Rad HDHVI 08:52
PROVIDERS: ATTEND Internal Medicine Cardiovascular Disease
DX: I10 Essential (primary) hypertension (principal); R07.89 Other chest pain
CPT/HCPCS: 93306

== ENCOUNTER → 2021-04-25 | Outpatient (CLI) | payer MEDICARE, OTHER ==
[2021-04-25 15:41] LABS: Basophils # (auto) 0.1 10 ^3/uL (0-0.2); Basophils % (auto) 0.5 % (0.0-2.0); Eosinophils # (auto) 0.1 10 ^3/uL (0-0.8); Monocytes # (auto) 1.1 10 ^3/uL (0-1.3)
[2021-04-25 15:42] LABS: Eosinophils % (auto) 0.6 % (0.0-7.0); Hematocrit 53.9 % (41.0-53.0); Hemoglobin 17.7 g/dL (13.5-17.5); Lymphocytes # (auto) 1.9 10 ^3/uL (0.4-5.4); Lymphocytes % (auto) 16.2 % (10.0-50.0); Mean Corpuscular Hemoglobin 28.1 pg (28.0-32.0); Mean Corpuscular Hgb Conc. 32.9 g/dL (32.0-36.0); Mean Corpuscular Volume 85.5 fL (80.0-100.0); Neutrophils # (auto) 8.8 10 ^3/uL (1.6-8.6); Neutrophils % (auto) 73.7 % (37.0-80.0); Nucleated Red Blood Cells % 0.1 %; Red Blood Cells 6.31 10^6/uL (4.5-5.90); Red Cell Distribution Width 15.6 % (11.8-14.3)
[2021-04-25 15:56] LABS: Albumin 3.7 g/dL (3.4-5.0); Calcium 9.6 mg/dL (8.5-10.1); Potassium 4.3 mmol/L (3.5-5.1)
[2021-04-25 16:03] LABS: BUN/Creatinine Ratio 19.1; Bilirubin, Total 0.5 mg/dL (0.2-1.0); Free T4 (Free Thyroxine) 1.26 ng/dL (0.89-1.76); INR 1.04 (0.9-1.15); Partial Thromboplastin Time 27.6 sec (23.6-33.0); Total Protein 7.1 g/dL (6.4-8.2)
[2021-04-25 16:04] LABS: Prostate Specific Antigen 1.78 ng/mL (0.0-4.0)
== END | disposition home or self-care (01) ==
LOC: Rad HDHVI 12:35
PROVIDERS: ATTEND Internal Medicine Cardiovascular Disease
DX: Z01.812 Encounter for preprocedural laboratory examination (principal); C61 Malignant neoplasm of prostate; D51.3 Other dietary vitamin B12 deficiency anemia; E11.9 Type 2 diabetes mellitus without complications; E55.9 Vitamin D deficiency, unspecified; D64.9 Anemia, unspecified; R00.2 Palpitations; R53.1 Weakness; R30.0 Dysuria; I70.0 Atherosclerosis of aorta; I11.0 Hypertensive heart disease with heart failure; I50.21 Acute systolic (congestive) heart failure; Z95.0 Presence of cardiac pacemaker; R07.9 Chest pain, unspecified; R06.02 Shortness of breath; M54.9 Dorsalgia, unspecified
CPT/HCPCS: 36415; 71046; 80053; 80061; 82607; 83036; 84153; 84439; 84443; 85025; 85610; 85730

== ENCOUNTER → 2021-06-06 | Outpatient (CLI) | payer MEDICARE, OTHER ==
[2021-06-06 15:32] LABS: Basophils # (auto) 0.1 10 ^3/uL (0-0.2); Basophils % (auto) 0.7 % (0.0-2.0); Eosinophils # (auto) 0.2 10 ^3/uL (0-0.8); Hematocrit 48.6 % (41.0-53.0); Hemoglobin 15.8 g/dL (13.5-17.5); Lymphocytes # (auto) 1.8 10 ^3/uL (0.4-5.4); Lymphocytes % (auto) 22.1 % (10.0-50.0); Mean Corpuscular Hemoglobin 27.6 pg (28.0-32.0); Mean Corpuscular Hgb Conc. 32.4 g/dL (32.0-36.0); Mean Corpuscular Volume 85.2 fL (80.0-100.0); Monocytes # (auto) 0.6 10 ^3/uL (0-1.3); Monocytes % (auto) 7.9 % (0.0-12.0); Neutrophils # (auto) 5.4 10 ^3/uL (1.6-8.6); Neutrophils % (auto) 67.3 % (37.0-80.0); Nucleated Red Blood Cells % 0.1 %; Red Blood Cells 5.71 10^6/uL (4.5-5.90); Red Cell Distribution Width 15.6 % (11.8-14.3); White Blood Cell 7.9 10^3/uL (4.4-10.8)
[2021-06-06 15:34] LABS: Urine Blood Negative /uL (Negative); Urine Specific Gravity 1.018 (1.001-1.035)
== END | disposition home or self-care (01) ==
LOC: LAB 11:22
PROVIDERS: ATTEND Internal Medicine Cardiovascular Disease
DX: N39.0 Urinary tract infection, site not specified (principal); D64.9 Anemia, unspecified
CPT/HCPCS: 36415; 81003; 85025

== ENCOUNTER 2021-06-14 20:03 | Emergency (ER) | payer MEDICARE, OTHER ==
[~2021-06-14] VITALS: Ht 188 cm; Wt 127.0 kg
[2021-06-14 20:04] VITALS: BP 148/72
[2021-06-16] MEDS ORDERED: IOHEXOL 350 MG/ML 100ML IJ ONE (12:35)
== END 2021-06-14 21:24 | disposition left against medical advice (07) ==
LOC: ER 20:03
DX: F41.9 Anxiety disorder, unspecified (principal); I11.0 Hypertensive heart disease with heart failure; I50.9 Heart failure, unspecified; J44.9 Chronic obstructive pulmonary disease, unspecified; E11.9 Type 2 diabetes mellitus without complications; E78.5 Hyperlipidemia, unspecified

== ENCOUNTER 2021-06-16 09:42 | Inpatient (IN) | payer MEDICARE, OTHER ==
[~2021-06-16] VITALS: Ht 188 cm; Wt 132.9 kg
[2021-06-16 10:56] LABS: Basophils # (auto) 0.1 10 ^3/uL (0-0.2); Basophils % (auto) 0.8 % (0.0-2.0); Eosinophils # (auto) 0.1 10 ^3/uL (0-0.8); Eosinophils % (auto) 1.1 % (0.0-7.0); Hematocrit 47.2 % (41.0-53.0); Hemoglobin 15.6 g/dL (13.5-17.5); Lymphocytes # (auto) 1.5 10 ^3/uL (0.4-5.4); Mean Corpuscular Hemoglobin 27.8 pg (28.0-32.0); Mean Corpuscular Volume 84.2 fL (80.0-100.0); Monocytes # (auto) 0.5 10 ^3/uL (0-1.3); Monocytes % (auto) 6.6 % (0.0-12.0); Neutrophils # (auto) 5.5 10 ^3/uL (1.6-8.6); Neutrophils % (auto) 71.5 % (37.0-80.0); Nucleated Red Blood Cells % 0.1 %; Red Blood Cells 5.61 10^6/uL (4.5-5.90); Red Cell Distribution Width 14.9 % (11.8-14.3); White Blood Cell 7.7 10^3/uL (4.4-10.8)
[2021-06-16 11:00] LABS: INR 1.05 (0.9-1.15); Partial Thromboplastin Time 27.1 sec (23.6-33.0)
[2021-06-16 11:34] LABS: Albumin 3.6 g/dL (3.4-5.0); Calcium 8.9 mg/dL (8.5-10.1); Magnesium 3.2 mg/dL (1.6-2.6); Potassium 3.4 mmol/L (3.5-5.1)
[2021-06-16 11:39] LABS: BUN/Creatinine Ratio 13.3; Total Protein 6.7 g/dL (6.4-8.2)
[2021-06-16] MEDS ORDERED: ENOXAPARIN SOD 100 MG/1 ML SYRINGE SC ONE (16:30)
[2021-06-16] MEDS ORDERED: MORPHINE SULFATE INJECTION 2 MG/ML SYRG IV PRN ×2 (16:45)
[2021-06-16] MEDS ORDERED: ACETAMINOPHEN 325 MG TAB PO PRN (16:45)
[2021-06-16] MEDS ORDERED: NITROGLYCERIN 0.4 MG SL TAB SL PRN (16:45)
[2021-06-16] MEDS ORDERED: DOCUSATE SOD 100 MG CAP PO PRN (16:45)
[2021-06-16] MEDS ORDERED: ONDANSETRON HCL 4 MG/2 ML VIAL IV PRN (16:45)
[2021-06-16 16:52] LABS: Urine Bacteria NONE SEEN /hpf (None Seen); Urine Blood Negative /uL (Negative); Urine Mucus FEW (None Seen); Urine WBC 1 /hpf (0 - 3)
[2021-06-16 16:58] LABS: Urine Specific Gravity > 1.050 (1.001-1.035)
[2021-06-16 17:27] LABS: Cholesterol 145 mg/dL (< 200); HDL Cholesterol 26 mg/dL (40-59); LDL Cholesterol 83 mg/dL (< 100); Triglycerides 240 mg/dL (< 150)
[2021-06-16] MEDS ORDERED: TAMSULOSIN HYDROCHLORIDE 0.4 MG CAP PO ONE (17:30)
[2021-06-16 20:27] VITALS: BP 136/73
[2021-06-16 22:00] VITALS: BP 147/75
[2021-06-16] MEDS: SACUBITRIL-VALSARTAN 24mg/26mg TAB PO SCH (22:00)
[2021-06-16] MEDS ORDERED: ROSU20TA14 PO (22:13)
[2021-06-16] MEDS ORDERED: METO-158 PO (22:13)
[2021-06-16] MEDS ORDERED: CEPH-322 PO (22:13)
[2021-06-16] MEDS ORDERED: SACU1TAB4 PO (22:13)
[2021-06-16] MEDS ORDERED: ROSU1TAB14 PO (22:13)
[2021-06-17 05:00] VITALS: BP 144/82
[2021-06-17] MEDS: ENOXAPARIN SOD 150 MG/1 ML SYRINGE SC SCH ×2 (05:17→15:52)
[2021-06-17] MEDS: FUROSEMIDE 40 MG TAB PO SCH (06:01)
[2021-06-17] MEDS: HYDROcodone-ACET 5/325MG TAB PO PRN (08:44)
[2021-06-17 09:00] VITALS: BP 137/79
[2021-06-17] MEDS: SACUBITRIL-VALSARTAN 24mg/26mg TAB PO SCH ×2 (10:46→22:52)
[2021-06-17] MEDS: METOPROLOL SUCCINATE XL 50 MG TAB PO SCH (10:47)
[2021-06-17 13:00] VITALS: BP 131/69
[2021-06-17 17:00] VITALS: BP 114/67
[2021-06-17] MEDS: OXYCODONE W/ ACETAMINOPHEN 5/325MG TABLET PO PRN (19:06)
[2021-06-17 22:00] VITALS: BP 121/68
[2021-06-17] MEDS: ceFAZolin 1GM/50ML 50 ML IV SCH (22:53)
[2021-06-18] MEDS: OXYCODONE W/ ACETAMINOPHEN 5/325MG TABLET PO PRN ×2 (02:47→13:57)
[2021-06-18] MEDS: ENOXAPARIN SOD 150 MG/1 ML SYRINGE SC SCH ×2 (03:51→17:03)
[2021-06-18] MEDS: ceFAZolin 1GM/50ML 50 ML IV SCH ×3 (05:53→22:19)
[2021-06-18 06:00] VITALS: BP 100/53
[2021-06-18 08:00] VITALS: BP 143/64
[2021-06-18 09:00] VITALS: BP 167/72
[2021-06-18] MEDS: FUROSEMIDE 40 MG TAB PO SCH (09:03)
[2021-06-18] MEDS: SACUBITRIL-VALSARTAN 24mg/26mg TAB PO SCH ×2 (09:03→22:11)
[2021-06-18] MEDS: METOPROLOL SUCCINATE XL 50 MG TAB PO SCH (09:03)
[2021-06-18 13:21] VITALS: BP 163/79
[2021-06-18 17:00] VITALS: BP 122/66
[2021-06-18] MEDS: DOBUTamine 1000MCG/ML 250 ML IV SCH (19:14)
[2021-06-18 20:12] VITALS: BP 146/64
[2021-06-18] MEDS: SILDENAFIL CITRATE 20 MG TAB PO SCH (20:19)
[2021-06-18] MEDS ORDERED: ADCIRCA 20 MG PO SCH (22:00)
[2021-06-19] MEDS: OXYCODONE W/ ACETAMINOPHEN 5/325MG TABLET PO PRN ×4 (02:15→20:47)
[2021-06-19] MEDS: DOBUTamine 1000MCG/ML 250 ML IV SCH ×2 (04:00→17:09)
[2021-06-19] MEDS: ENOXAPARIN SOD 150 MG/1 ML SYRINGE SC SCH ×2 (05:03→16:56)
[2021-06-19] MEDS: ceFAZolin 1GM/50ML 50 ML IV SCH ×3 (06:43→23:06)
[2021-06-19] MEDS: SILDENAFIL CITRATE 20 MG TAB PO SCH ×3 (07:59→20:32)
[2021-06-19 08:00] VITALS: BP 147/80
[2021-06-19 09:00] VITALS: BP 147/80
[2021-06-19] MEDS: SACUBITRIL-VALSARTAN 24mg/26mg TAB PO SCH ×2 (09:24→20:32)
[2021-06-19] MEDS: FUROSEMIDE 40 MG TAB PO SCH (09:24)
[2021-06-19] MEDS: METOPROLOL SUCCINATE XL 50 MG TAB PO SCH (09:25)
[2021-06-19 13:00] VITALS: BP 124/55
[2021-06-19 17:00] VITALS: BP 107/66
[2021-06-19 22:00] VITALS: BP 121/60
[2021-06-20] MEDS: ENOXAPARIN SOD 150 MG/1 ML SYRINGE SC SCH ×2 (03:33→16:08)
[2021-06-20] MEDS: OXYCODONE W/ ACETAMINOPHEN 5/325MG TABLET PO PRN ×3 (03:55→19:04)
[2021-06-20 05:00] VITALS: BP 166/72
[2021-06-20] MEDS: DOBUTamine 1000MCG/ML 250 ML IV SCH ×3 (05:31→21:05)
[2021-06-20] MEDS: ceFAZolin 1GM/50ML 50 ML IV SCH ×3 (05:32→21:46)
[2021-06-20 08:00] VITALS: BP 154/70
[2021-06-20] MEDS: SACUBITRIL-VALSARTAN 24mg/26mg TAB PO SCH ×2 (09:21→21:46)
[2021-06-20] MEDS: SILDENAFIL CITRATE 20 MG TAB PO SCH ×3 (09:21→20:00)
[2021-06-20] MEDS: METOPROLOL SUCCINATE XL 50 MG TAB PO SCH (09:22)
[2021-06-20] MEDS: FUROSEMIDE 40 MG TAB PO SCH (09:22)
[2021-06-20 09:32] VITALS: BP 154/70
[2021-06-20 13:00] VITALS: BP 138/69
[2021-06-20 17:26] VITALS: BP 138/49
[2021-06-20] MEDS: LORazepam 0.5 MG TAB PO PRN (20:00)
[2021-06-20 22:00] VITALS: BP 132/71
[2021-06-21] VITALS (7 sets, daily range): BP systolic 117–158; BP diastolic 55–89
[2021-06-21] MEDS: OXYCODONE W/ ACETAMINOPHEN 5/325MG TABLET PO PRN ×3 (02:51→20:51)
[2021-06-21] MEDS: ENOXAPARIN SOD 150 MG/1 ML SYRINGE SC SCH (03:44)
[2021-06-21] MEDS: LORazepam 0.5 MG TAB PO PRN ×2 (05:22→11:52)
[2021-06-21] MEDS: ceFAZolin 1GM/50ML 50 ML IV SCH ×3 (05:37→20:23)
[2021-06-21] MEDS: SILDENAFIL CITRATE 20 MG TAB PO SCH ×3 (08:00→20:00)
[2021-06-21] MEDS ORDERED: ANGIOMAX 250 MG VIAL IV ONE (11:10)
[2021-06-21] MEDS ORDERED: fentaNYL CITRATE 100 MCG/2 ML VL ONE (11:10)
[2021-06-21] MEDS ORDERED: LIDOCAINE 2%HCL (LOCAL ANESTH.) INJ 20ML MDV ONE (11:11)
[2021-06-21] MEDS ORDERED: MIDAZOLAM HCL 2MG/2ML 2ml VIAL (1mg/ml) ONE (11:11)
[2021-06-21] MEDS ORDERED: SODIUM CHL 0.9% 0 ML ONE (11:11)
[2021-06-21] MEDS ORDERED: IOHEXOL 350 MG/ML 100ML IJ ONE (12:46)
[2021-06-21] MEDS: FUROSEMIDE 40 MG TAB PO SCH ×3 (14:33→22:00)
[2021-06-21] MEDS: SACUBITRIL-VALSARTAN 24mg/26mg TAB PO SCH ×2 (14:33→20:30)
[2021-06-21] MEDS: METOPROLOL SUCCINATE XL 50 MG TAB PO SCH (14:34)
[2021-06-21] MEDS: DOBUTamine 1000MCG/ML 250 ML IV SCH (17:20)
[2021-06-21] MEDS: AMIODARONE HCL 200 MG TAB PO SCH (20:23)
[2021-06-21] MEDS: APIXABAN 5 MG TAB PO SCH (20:24)
[2021-06-21] MEDS: HYDROcodone-ACET 5/325MG TAB PO PRN (20:26)
[2021-06-22] MEDS: LORazepam 0.5 MG TAB PO PRN (00:13)
[2021-06-22 05:00] VITALS: BP 144/68
[2021-06-22] MEDS: DOBUTamine 1000MCG/ML 250 ML IV SCH (05:55)
[2021-06-22] MEDS: OXYCODONE W/ ACETAMINOPHEN 5/325MG TABLET PO PRN (05:56)
[2021-06-22] MEDS: ceFAZolin 1GM/50ML 50 ML IV SCH (06:39)
[2021-06-22 08:15] VITALS: BP 137/76
[2021-06-22] MEDS: SILDENAFIL CITRATE 20 MG TAB PO SCH (08:35)
[2021-06-22] MEDS: SACUBITRIL-VALSARTAN 24mg/26mg TAB PO SCH (08:35)
[2021-06-22] MEDS: AMIODARONE HCL 200 MG TAB PO SCH (08:35)
[2021-06-22] MEDS: APIXABAN 5 MG TAB PO SCH (08:35)
[2021-06-22] MEDS: FUROSEMIDE 40 MG TAB PO SCH (08:35)
[2021-06-22] MEDS: METOPROLOL SUCCINATE XL 50 MG TAB PO SCH (08:36)
[2021-06-22 11:45] VITALS: BP 137/76
== END 2021-06-22 12:10 | disposition home or self-care (01) | DRG 287 ==
LOC: ER 09:42 → TELE 16:46 → TELE-CENTR 20:27
PROVIDERS: ADMIT Family Medicine; ATTEND Internal Medicine Cardiovascular Disease
PROC: B31T1ZZ Fluoroscopy of Left Pulmonary Artery using Low Osmolar Contrast (ICD-10-PCS; principal; 2021-06-21)
PROC: B31S1ZZ Fluoroscopy of Right Pulmonary Artery using Low Osmolar Contrast (ICD-10-PCS; 2021-06-21)
PROC: B2111ZZ Fluoroscopy of Multiple Coronary Arteries using Low Osmolar Contrast (ICD-10-PCS; 2021-06-21)
PROC: B2151ZZ Fluoroscopy of Left Heart using Low Osmolar Contrast (ICD-10-PCS; 2021-06-21)
PROC: 4A023N8 Measurement of Cardiac Sampling and Pressure, Bilateral, Percutaneous Approach (ICD-10-PCS; 2021-06-21)
DX: T81.718A Complication of other artery following a procedure, not elsewhere classified, initial encounter (principal); I50.22 Chronic systolic (congestive) heart failure; D68.59 Other primary thrombophilia; I26.99 Other pulmonary embolism without acute cor pulmonale; J44.9 Chronic obstructive pulmonary disease, unspecified; E87.6 Hypokalemia; Z20.822 Contact with and (suspected) exposure to COVID-19; E11.9 Type 2 diabetes mellitus without complications; E66.9 Obesity, unspecified; G47.00 Insomnia, unspecified; Z68.37 Body mass index [BMI] 37.0-37.9, adult; I11.0 Hypertensive heart disease with heart failure; I25.5 Ischemic cardiomyopathy; I48.91 Unspecified atrial fibrillation; K59.00 Constipation, unspecified; Z82.49 Family history of ischemic heart disease and other diseases of the circulatory system; Z82.5 Family history of asthma and other chronic lower respiratory diseases; Z83.3 Family history of diabetes mellitus; Z86.73 Personal history of transient ischemic attack (TIA), and cerebral infarction without residual deficits; Z95.1 Presence of aortocoronary bypass graft; Z95.810 Presence of automatic (implantable) cardiac defibrillator; I25.2 Old myocardial infarction
CPT/HCPCS: 36415; 71045; 71260; 74177; 75746; 80053; 80061; 81001; 82728; 83036; 83735; 83880; 84443; 84484; 85025; 85379; 85610; 85730; 86141; 87426; 93005; 93306; 93460; 96372; 99152; 99153; 99291; C1751; G0378; J0690; J2250

== ENCOUNTER 2021-07-15 19:56 | Emergency (ER) | payer MEDICARE ==
[~2021-07-15] VITALS: Ht 188 cm; Wt 122.5 kg
[~2021-07-15 19:56] MED LIST changes: -ASPI-407 PO; +CEPH-322 PO; -CHOL20009 PO; -FLUT1SPR5; -FURO40TA4 PO; -LORA-483 PO; +METO-158 PO; -METO-289 PO; -NOR10T PO; +ROSU1TAB14 PO; +SACU1TAB4 PO; -SACU1TAB7 PO
[2021-07-15 20:12] VITALS: BP 143/63
== END 2021-07-15 22:59 | disposition left against medical advice (07) ==
LOC: ER 19:57
DX: M79.602 Pain in left arm (principal); Z53.21 Procedure and treatment not carried out due to patient leaving prior to being seen by health care provider
CPT/HCPCS: 93005

== ENCOUNTER → 2021-07-19 | Outpatient (CLI) | payer MEDICARE | END | disposition home or self-care (01) | LOC: Rad HDHVI 10:55 | PROVIDERS: ATTEND Internal Medicine Cardiovascular Disease | DX: I08.8 Other rheumatic multiple valve diseases (principal); I11.9 Hypertensive heart disease without heart failure; R06.02 Shortness of breath | CPT/HCPCS: 93306 ==

== ENCOUNTER → 2021-07-23 | Outpatient (CLI) | payer MEDICARE ==
[~2021-07-23] VITALS: Ht 188 cm; Wt 127.0 kg
== END | disposition home or self-care (01) ==
LOC: Rad HDHVI 09:00
PROVIDERS: ATTEND Internal Medicine Cardiovascular Disease
DX: I11.0 Hypertensive heart disease with heart failure (principal); I50.43 Acute on chronic combined systolic (congestive) and diastolic (congestive) heart failure; I25.10 Atherosclerotic heart disease of native coronary artery without angina pectoris; E78.5 Hyperlipidemia, unspecified; Z82.49 Family history of ischemic heart disease and other diseases of the circulatory system; Z95.0 Presence of cardiac pacemaker
CPT/HCPCS: 78452; 93017; 96374; A9500

== ENCOUNTER 2021-11-29 14:10 | Emergency (ER) | payer MEDICARE, OTHER ==
[~2021-11-29] VITALS: Ht 188 cm; Wt 127.0 kg
[2021-11-29 14:23] VITALS: BP 105/56
[2021-11-29] MEDS ORDERED: IOHEXOL 350 MG/ML 100ML IJ ONE (20:48)
[2021-11-29 22:04] LABS: Basophils # (auto) 0.1 10 ^3/uL (0-0.2); Eosinophils # (auto) 0.1 10 ^3/uL (0-0.8); Eosinophils % (auto) 1.1 % (0.0-7.0); Hemoglobin 15.5 g/dL (13.5-17.5); Lymphocytes # (auto) 1.6 10 ^3/uL (0.4-5.4); Lymphocytes % (auto) 17.3 % (10.0-50.0); Mean Corpuscular Hemoglobin 29.6 pg (28.0-32.0); Mean Corpuscular Hgb Conc. 34.5 g/dL (32.0-36.0); Mean Corpuscular Volume 85.8 fL (80.0-100.0); Monocytes # (auto) 0.8 10 ^3/uL (0-1.3); Monocytes % (auto) 8.3 % (0.0-12.0); Neutrophils # (auto) 6.8 10 ^3/uL (1.6-8.6); Neutrophils % (auto) 72.3 % (37.0-80.0); Red Blood Cells 5.25 10^6/uL (4.5-5.90); Red Cell Distribution Width 14.8 % (11.8-14.3); White Blood Cell 9.4 10^3/uL (4.4-10.8)
[2021-11-29 22:20] LABS: Calcium 8.9 mg/dL (8.5-10.1); Potassium 3.8 mmol/L (3.5-5.1)
[2021-11-29 22:22] LABS: BUN/Creatinine Ratio 16.5
[2021-11-29 22:25] LABS: Bilirubin, Total 0.6 mg/dL (0.2-1.0); Total Protein 6.8 g/dL (6.4-8.2)
[2021-11-29 23:34] LABS: INR 1.1 (0.9-1.15); Partial Thromboplastin Time 30.5 sec (23.6-33.0)
== END 2021-11-29 23:08 | disposition left against medical advice (07) ==
LOC: ER 14:10
DX: R07.89 Other chest pain (principal); R91.1 Solitary pulmonary nodule; I11.0 Hypertensive heart disease with heart failure; I50.9 Heart failure, unspecified; I48.91 Unspecified atrial fibrillation; I25.2 Old myocardial infarction; E11.9 Type 2 diabetes mellitus without complications; E78.5 Hyperlipidemia, unspecified; Z95.1 Presence of aortocoronary bypass graft; Z95.0 Presence of cardiac pacemaker; Z79.899 Other long term (current) drug therapy
CPT/HCPCS: 36415; 71045; 71260; 74177; 80053; 83880; 84484; 85025; 85379; 85610; 85730; 93005; 99285; Q9967

== ENCOUNTER → 2022-03-15 | Outpatient (CLI) | payer MEDICARE, OTHER ==
[2022-03-15 09:49] LABS: Basophils # (auto) 0 10 ^3/uL (0-0.2); Basophils % (auto) 0.7 % (0.0-2.0); Eosinophils # (auto) 0.1 10 ^3/uL (0-0.8); Eosinophils % (auto) 1.2 % (0.0-7.0); Hematocrit 48.6 % (41.0-53.0); Hemoglobin 15.8 g/dL (13.5-17.5); Lymphocytes # (auto) 1.2 10 ^3/uL (0.4-5.4); Lymphocytes % (auto) 20.4 % (10.0-50.0); Mean Corpuscular Hemoglobin 28.1 pg (28.0-32.0); Mean Corpuscular Hgb Conc. 32.6 g/dL (32.0-36.0); Mean Corpuscular Volume 86.5 fL (80.0-100.0); Monocytes # (auto) 0.5 10 ^3/uL (0-1.3); Monocytes % (auto) 8.1 % (0.0-12.0); Neutrophils % (auto) 69.6 % (37.0-80.0); Nucleated Red Blood Cells % 0.1 %; Red Blood Cells 5.62 10^6/uL (4.5-5.90); White Blood Cell 5.8 10^3/uL (4.4-10.8)
[2022-03-18 09:13] LABS: Hepatitis B Surface Antibody Negative (Negative)
[2022-03-18 09:45] LABS: Hepatitis A Total Antibody Positive (Negative)
[2022-03-18 16:01] LABS: Hepatitis C Antibody Negative (Negative)
== END | disposition home or self-care (01) ==
LOC: LAB 08:32
PROVIDERS: ATTEND Internal Medicine Cardiovascular Disease
DX: M32.10 Systemic lupus erythematosus, organ or system involvement unspecified (principal); M05.9 Rheumatoid arthritis with rheumatoid factor, unspecified; R79.82 Elevated C-reactive protein (CRP)
CPT/HCPCS: 36415; 82390; 85025; 85045; 85652; 86141; 86431; 86704; 86706; 86708; 86803; 87340

== ENCOUNTER → 2022-05-20 | Outpatient (CLI) | payer MEDICARE, OTHER | END | disposition home or self-care (01) | LOC: Rad HDHVI 15:07 | PROVIDERS: ATTEND Internal Medicine Cardiovascular Disease | DX: Z01.818 Encounter for other preprocedural examination (principal); Z95.0 Presence of cardiac pacemaker | CPT/HCPCS: 71046 ==

== ENCOUNTER → 2022-06-10 | Outpatient (CLI) | payer MEDICARE, OTHER ==
[2022-06-10 12:04] LABS: Basophils # (auto) 0 10 ^3/uL (0-0.2); Basophils % (auto) 0.7 % (0.0-2.0); Eosinophils # (auto) 0.1 10 ^3/uL (0-0.8); Eosinophils % (auto) 1.2 % (0.0-7.0); Hematocrit 49.4 % (41.0-53.0); Hemoglobin 16.4 g/dL (13.5-17.5); Lymphocytes # (auto) 1.1 10 ^3/uL (0.4-5.4); Lymphocytes % (auto) 16.7 % (10.0-50.0); Mean Corpuscular Hgb Conc. 33.2 g/dL (32.0-36.0); Mean Corpuscular Volume 87.3 fL (80.0-100.0); Monocytes # (auto) 0.4 10 ^3/uL (0-1.3); Monocytes % (auto) 6.4 % (0.0-12.0); Neutrophils # (auto) 4.9 10 ^3/uL (1.6-8.6); Nucleated Red Blood Cells % 0.1 %; Red Blood Cells 5.65 10^6/uL (4.5-5.90); Red Cell Distribution Width 14.3 % (11.8-14.3); White Blood Cell 6.5 10^3/uL (4.4-10.8)
[2022-06-10 12:12] LABS: BUN/Creatinine Ratio 17.1; Calcium 9.4 mg/dL (8.5-10.1); Potassium 4.6 mmol/L (3.5-5.1)
[2022-06-10 12:21] LABS: INR 1.07 (0.9-1.15); Partial Thromboplastin Time 31.7 sec (24.6-33.4)
[2022-06-10 12:46] LABS: Urine Blood Negative /uL (Negative); Urine Specific Gravity 1.026 (1.001-1.035)
== END | disposition home or self-care (01) ==
LOC: LAB 08:25
PROVIDERS: ATTEND Internal Medicine Cardiovascular Disease
DX: I50.23 Acute on chronic systolic (congestive) heart failure (principal)
CPT/HCPCS: 36415; 80048; 81003; 85025; 85610; 85730; 87081

== ENCOUNTER → 2022-06-25 | Outpatient (CLI) | payer MEDICARE, OTHER ==
[~2022-06-25] MED LIST changes: +IOHEXOL 350 MG/ML 100ML IJ ONE
[2022-06-25 10:45] VITALS: BP 139/67
[2022-06-25 12:21] LABS: Urine Blood Negative /uL (Negative); Urine Specific Gravity 1.011 (1.001-1.035)
[2022-06-25 12:34] LABS: BUN/Creatinine Ratio 14.3; Calcium 9.1 mg/dL (8.5-10.1); Potassium 4.1 mmol/L (3.5-5.1)
[2022-06-25 13:08] VITALS: BP 139/67
== END | disposition home or self-care (01) ==
LOC: Rad HDHVI 10:43
PROVIDERS: ATTEND Internal Medicine Cardiovascular Disease
DX: N28.1 Cyst of kidney, acquired (principal); K57.30 Diverticulosis of large intestine without perforation or abscess without bleeding; K40.90 Unilateral inguinal hernia, without obstruction or gangrene, not specified as recurrent; K56.41 Fecal impaction; M47.815 Spondylosis without myelopathy or radiculopathy, thoracolumbar region; M43.17 Spondylolisthesis, lumbosacral region; R10.9 Unspecified abdominal pain; N39.0 Urinary tract infection, site not specified
CPT/HCPCS: 36415; 74177; 80048; 81003; G0463; Q9967

== ENCOUNTER → 2022-06-28 | Outpatient (CLI) | payer MEDICARE, OTHER ==
[~2022-06-28] MED LIST changes: -IOHEXOL 350 MG/ML 100ML IJ ONE
== END | disposition home or self-care (01) ==
LOC: Rad HDHVI 13:57
PROVIDERS: ATTEND Internal Medicine Cardiovascular Disease
DX: I08.3 Combined rheumatic disorders of mitral, aortic and tricuspid valves (principal); I11.9 Hypertensive heart disease without heart failure; R00.2 Palpitations
CPT/HCPCS: 93306